=== PATIENT | female | born 1935 | race Caucasian/White ===

== ENCOUNTER 2018-10-03 07:14 | Inpatient (IN) ==
[2018-10-03] MEDS ORDERED: MORPHINE IV ONE ×2 (07:36→09:15)
[2018-10-03] MEDS ORDERED: NS 1,000 ML IV ONE (07:36)
[2018-10-03] MEDS ORDERED: ZOFRAN IV ONE (07:36)
--- NOTE | 2018-10-03 07:43 | PROVIDER DOCUMENTATION ---
HPI-Abdominal Pain/GI Problem - General Chief Complaint: Nausea/Vomiting Stated Complaint: ACID REFLUX Time Seen by Provider: 10/03/18 07:26 Source: patient, family (daughter) Allergies/Adverse Reactions: Patient Allergies Allergy/AdvReac Type Severity Reaction Status Date / Time benzonatate Allergy Severe ANAPHYLAXIS Verified 03/13/17 02:31 [From Tessalon Perles] hydromorphone [From Dilaudid] Allergy Intermediate SWELLING Verified 03/14/17 09:47 doxycycline Allergy SWELLING Verified 03/13/17 02:31 Home Medications: Home Medication List Medication Instructions Recorded Confirmed Last Taken Type PRAVAstatin [Pravachol] 40 mg PO QHS 09/20/13 01/16/18 01/17/16 19:00 History Levothyroxine [Synthroid] 75 microgm PO DAILY #10 09/25/13 01/16/18 01/18/16 07:00 Rx Amlodipine Besylate [Norvasc] 2.5 mg PO QAM 07/19/14 01/16/18 01/18/16 07:00 Hi story Pantoprazole Sodium [Protonix] 40 mg PO DAILY 03/14/17 01/16/18 Unknown History Donepezil [Aricept] 5 mg PO QHS #30 tab 03/20/17 01/16/18 Unknown Rx Ondansetron HCl [Zofran] 1 tab PO Q6H PRN 01/16/18 01/16/18 Unknown History Diphenhydramine [Benadryl] 25 mg PO Q6H PRN PRN capsule 01/18/18 Unknown Rx - History of Present Illness-ABD Nature of Presenting Problems: C/O upper abdominal pain, vomiting for 24 hours, gradually getting worse. Last BM/Flatus some time yesterday. History of SBO x 2 in the past, worried she has similar SBO at this time. Also has history of diverticulitis, and admit to eating raisins earlier in the week. No fever, chills. Also all grand kids and son-in-law have had strep this week, and patient does not some malaise, bodyaches and sore throat times 1-2 days Abdominal Pain Onset Location: reports: LUQ, epigastric Pain Radiation: reports: no radiation Quality of Pain: reports: aching, cramping, stabbing Severity in ED: reports: moderate Onset/Duration: reports: 24 hours ago Timing: reports: still present, constant, changing over time, getting worse Activities at Onset: reports: light activity Exposure to sick contacts?: Yes (Strep) Modifying Factors: improves with: nothing. worse with: movement Associated Symptoms: reports: malaise, muscle aches, nausea, swelling/mass in abdomen, vomiting. denies: fever/chills Last BM: 24 hours ago Dark Stools Present?: reports: none noticed Rectal Bleeding: reports: none Rectal Pain: reports: none Emesis Description: reports: clear (food particles, some bile) Bruising or Bleeding Gums?: No Similar Symptoms Previously?: Yes (SBO x 2) Recently seen or treated by another doctor?: No (Seekray Calderon. Has seen Mary for General Surgery) Review of Systems - Adult - REVIEW OF SYSTEMS - ADULT Constitutional: reports: no symptoms reported Eyes: reports: no symptoms reported Ears, Nose, Mouth & Throat: reports: see HPI, throat pain. denies: ear pain Cardiovascular: reports: no symptoms reported Respiratory: reports: no symptoms reported Gastrointestinal: reports: see HPI, abdominal pain, constipation, nausea, vomiti ng. denies: hematemesis, diarrhea, difficulty swallowing, frequent heartburn, poor appetite, rectal bleeding Genitourinary: reports: no symptoms reported Musculoskeletal: reports: no symptoms reported Integumentary: reports: no symptoms reported Neurological: reports: no symptoms reported Psychiatric: reports: no symptoms reported Endocrine: reports: no symptoms reported Hematologic/Lymphatic: reports: no symptoms reported Allergic/Immunologic: reports: no symptoms reported All Other Systems: Reviewed and Negative Past History - Adult - PAST MEDICAL HISTORY-ADULT Review of Records: reports: Old Records Reviewed, Nursing Assessment Review, Medications Reviewed, Social history reviewed & non-contributory. Major Childhood Illnesses: reports: denies history Cardiovascular: reports: HTN, hyperlipidemia Respiratory: reports: other (seasonal allergies) Gastrointestinal: reports: diverticulosis, GERD, obstruction, other (esophageal infection) Obstetrical/Gynecological: reports: denies history Genitourinary: reports: denies history Musculoskeletal: reports: denies history Neurological: reports: dementia Psychiatric: reports: anxiety Endocrine/Immune: reports: thyroid disorder Other Conditions: reports: denies history - PRIOR SURGERIES/PROCEDURES Surgical/Procedure History: reports: appendectomy, hysterectomy, tonsillectomy, other (exploratory laparotimy with colon resection, mastectomy) - PRIOR HOSPITALIZATIONS Prior Hospitalizations: reports: for other non-related - IMMUNIZATION STATUS Childhood Immunizations: UTD Flu Vaccine: UTD - FAMILY HISTORY Family History: reviewed, not pertinent - SOCIAL HISTORY Smoking: non-smoker Substance Use: none/never Alcohol Use Frequency: never Living Situation: family Physical Exam-General - PHYSICAL EXAM-ADULT Initial Vital Signs Reviewed: Yes (Tachycardic, tacypneic, afebrile) - CONSTITUTIONAL General Appearance: appears well, alert, no apparent distress - EYES Eyes: PERRL/EOMI, pink conjunctivae - HEAD, EARS, NOSE, MOUTH & THROAT HENMT: normocephalic/atraumatic, moist mucous membranes, normal ENT inspection, pharynx normal - NECK Neck: non-tender, full range of motion, supple, normal inspection - RESPIRATORY Respiratory: chest non-tender, lungs clear, normal breath sounds, no pleuratic chest pain, no respiratory distress, no accessory muscle use - CARDIOVASCULAR Cardiovascular: normal peripheral pulses, regular rate, rhythm, no edema, no gallop, no JVD, no murmur, tachycardia - GASTROINTESTINAL (ABDOMEN) Abdominal Exam: soft, no organomegaly, no pulsatile mass, abnormal bowel sounds (hyperactive), tenderness (generalized upper abdominal pain). negative: guarding - LYMPHATIC Lymphatic: no adenopathy - MUSCULOSKELETAL Back Exam: normal inspection, no CVA tenderness, no vertebral tenderness Extremity: normal range of motion, non-tender, normal gait, normal inspection, no pedal edema, no calf tenderness, normal capillary refill - SKIN Integumentary: normal color, normal turgor, warm/dry - NEUROLOGIC Neurologic: desk officer II-XII nml as tested, grossly normal, no motor/sensory deficits - PSYCHIATRIC Psych/Mental Status: normal mood/affect, normal thought content, normal thought process, oriented x 3 Progress - PLAN OF CARE/RESULTS Progress/Plan/Lab Results: Vital Signs - 8 hr 10/03/18 07:18 Temperature 97.3 F L Pulse Rate 101 H Respiratory Rate 20 Blood Pressure 143/74 O2 Sat by Pulse Oximetry 99 Orders Category Date Time Status Nursing- Obtain EKG once Care 10/03/18 07:34 Active Saline Loc NOW Care 10/03/18 07:33 Active NPO Diet 10/03/18 07:[address] ABDOMEN/PELVIS W/O CONTRAST [CT] Stat Exams 10/03/18 07:35 Ordered BLOOD CULTURE [BLDCUL] Stat Lab 10/03/18 07:35 Uncollected CBC WITH ELECTRONIC DIFF [HEME] Stat Lab 10/03/18 07:35 Uncollected CK PROFILE [SP CHEM] Stat Lab 10/03/18 07:35 Uncollected COMPREHENSIVE METABOLIC PANEL [CHEM] Stat Lab 10/03/18 07:35 Uncollected LACTATE, PLASMA [CHEM] Stat Lab 10/03/18 07:35 Uncollected LIPASE [CHEM] Stat Lab 10/03/18 07:35 Uncollected PRO B-NATRIURETIC PEPTIDE Stat Lab 10/03/18 07:35 Uncollected PROTIME WITH INR [COAG] Stat Lab 10/03/18 07:35 Uncollected TROPONIN T Stat Lab 10/03/18 07:35 Uncollected TYPE & SCREEN [BBK] Stat Lab 10/03/18 07:35 Uncollected URINALYSIS W/POSS RFLX CULT [URINALYSIS] Stat Lab 10/03/18 07:35 Uncollected 0.9% Sodium Chloride Inj [Ns] 1,000 ml Med 10/03/18 07:36 Active IV 999 mls/hr Morphine Med 10/03/18 07:36 Discontinued 2 mg IV NOW ONE Ondansetron [Zofran] Med 10/03/18 07:36 Discontinued 4 mg IV NOW ONE EKG [EKG] Stat Ther 10/03/18 07:34 Ordered Result Diagrams: 10/03/18 07:23 10/03/18 07:23 - REASSESSMENT Reassessment #1 Time Reassessed: 09:19 Status: improving (better after IV F and pain meds. No sign of Sepsis at this point. NGT ordered) - EKG 1 Time of EKG reading by physician:: 09:16 EKG Read and Signed by:: Edson Murphy EKG Interpretation (*Must complete 3 of following elements*): Abnormal Rate: 72 Rhythm: nsr [place]: normal QRS: poor R wave progression, other (LAE) SC Interval: normal ST Wave: normal Prior EKG Comparison: no prior EKG - CT/MRI 1 CT Study: Abdomen Impression: Abnormal (EXAM: CT ABDOMEN/PELVIS W/O CONTRAST 10/03/2018 HISTORY: abd pain, vomiting, history of SBO TECHNIQUE: This exam was performed using automated exposure control, adjustment of mA or kV according to patient size, and/or use of iterative reconstruction technique. COMMENT: The current examination is compared with the previous study of 01/16/2018. There is a somewhat triangular calcified nodule in the anterior right lower lobe. This has not changed significantly. There are platelike opacities in the left lower lobe which have not changed and are presumably due to fibrosis. There are granulomata in the spleen. There has been cholecystectomy. There are atherosclerotic arterial calcifications. There is no evidence of nephrolithiasis. There are peripelvic cysts in the left kidney. There is no evidence of hydronephrosis. The urinary bladder is unremarkable. There is diverticulosis in the sigmoid colon without evidence of diverticulitis. There are multiple distended fluid conta ining small bowel loops. There is retained fluid in the stomach which is not particularly distended. The distal small bowel is not distended. There is some fecalized contents in a small bowel loop which is demonstrated on image 106. This is presumably the level of the transition which is visible on image 102. There is some fecal debris in the colon. There is no evidence of free fluid or free air. The regional skeleton is stable in appearance. IMPRESSION: Partial small bowel obstruction. Electronically signed by Ad Meier 10/03/2018 9:03 AM 10/03/18 0903 Interpreting Physician: Ad Meier MD Dictated Date/Time: 10/03/18 0859 cc: Edson Murphy MD; Sarah Calderon), See EMR Report - CONSULTS/PCP/HOSPITALIST Notification #1 *Consult/PCP/Hospitalist*: Walker, surgery Time Discussed: :18 Consult Disposition: Admit (to hospitalist, will follow) #2 Consult: Martita Time Discussed: : Consult Disposition: Admit (to [facility]) Departure - Departure Date of Disposition Decision: 10/03/18 Time of Disposition Decision: DIAGNOSIS: Partial small bowel obstruction Disposition: ADMITTED INPATIENT 09 Certified Medical Emergency: Emergent Condition: Fair Referrals and Follow-Ups: Sarah Calderon MD [Primary Care Provider] - - Critical Care Note This patient required my direct & personal management of CC.: No Attestation - Physician/ IVANA Attestation Patient care was provided by Advanced Practice Provider:: No The physician spent face to face time with patient:: Yes Advanced Practice Provider documentation review:: Supervising physician onsite and consulted in the evaluation and care of this patient. The physician did have a face to face encounter with the patient.
[2018-10-03 08:09] LABS: BASO% 0.3 % (0.0-0.8); EOS% 0.1 % (0.0-10.0); HEMATOCRIT 37.5 % (37.0-47.0); HEMOGLOBIN 12.7 g/dL (12.0-16.0); LYMPH# 0.85 X1000 (1.2-3.4); LYMPH% 11.2 % (20.5-51.1); MCHC 33.9 g/dL (33-37); MCV 82.6 FL (81-99); MONO# 0.37 X1000 (0.11-0.59); MONO% 4.9 % (1.7-9.3); MPV 10.4 FL (7.4-10.4); NEUT# 6.37 X1000 (1.4-6.5); NEUT% 83.5 % (42.2-75.2); PLT 295 X1000 (130-400); RBC 4.54 XMIL (4.2-5.4); RDW 14.6 % (11.5-14.5); WBC 7.62 X1000 (4.8-10.8)
[2018-10-03 08:10] LABS: BASO# 0.02 X1000 (0.0-0.2); EOS# 0.01 X1000 (0.0-0.7)
[2018-10-03 08:19] LABS: INR 0.85; PROTIME 12.3 Seconds (11.0-16.0)
[2018-10-03 08:30] LABS: ALB/GLOB RATIO 1.5; ALBUMIN 4.9 g/dL (3.5-5.0); CALCIUM 10.3 mg/dL (8.8-10.2); CREATININE 0.9 mg/dL (0.5-0.9); POTASSIUM 3.7 mmol/L (3.5-5.1); TOTAL BILIRUBIN 0.32 mg/dL (0.20-1.00); TOTAL PROTEIN 8.1 g/dL (6.3-8.3)
--- NOTE | 2018-10-03 09:05 | Diag Imaging Result Doc PS360 ---
EXAM: CT ABDOMEN/PELVIS W/O CONTRAST 10/03/2018 HISTORY: abd pain, vomiting, history of SBO TECHNIQUE: This exam was performed using automated exposure control, adjustment of mA or kV according to patient size, and/or use of iterative reconstruction technique. COMMENT: The current examination is compared with the previous study of 01/16/2018. There is a somewhat triangular calcified nodule in the anterior right lower lobe. This has not changed significantly. There are platelike opacities in the left lower lobe which have not changed and are presumably due to fibrosis. There are granulomata in the spleen. There has been cholecystectomy. There are atherosclerotic arterial calcifications. There is no evidence of nephrolithiasis. There are peripelvic cysts in the left kidney. There is no evidence of hydronephrosis. The urinary bladder is unremarkable. There is diverticulosis in the sigmoid colon without evidence of diverticulitis. There are multiple distended fluid containing small bowel loops. There is retained fluid in the stomach which is not particularly distended. The distal small bowel is not distended. There is some fecalized contents in a small bowel loop which is demonstrated on image 106. This is presumably the level of the transition which is visible on image 102. There is some fecal debris in the colon. There is no evidence of free fluid or free air. The regional skeleton is stable in appearance. IMPRESSION: Partial small bowel obstruction. Electronically signed by Ad Meier 10/03/2018 9:03 AM
[2018-10-03] MEDS ORDERED: PEPCID IV ONE (09:15)
[2018-10-03] MEDS ORDERED: SODIUM CHLORIDE 0.9% INJ ONE (09:15)
[2018-10-03 10:05] LABS: URINE SOURCE CATH
[2018-10-03 10:08] LABS: BILIRUBIN URINE NEGATIVE (NEGATIVE); BLOOD URINE NEGATIVE (NEGATIVE); COLOR STRAW; GLUCOSE URINE NEGATIVE (NEGATIVE); KETONE URINE TRACE mg/dL (NEGATIVE); LEUKOCYTES URINE NEGATIVE (NEGATIVE); NITRITE URINE NEGATIVE (NEGATIVE); PH URINE 8.5; PROTEIN URINE NEGATIVE (NEGATIVE); SP GRAVITY URINE 1.004; TURBIDITY URINE CLEAR (CLEAR); UR EPITHELIAL CELLS <10 /HPF (<10); URINE BACTERIA NEGATIVE /HPF; URINE RBC <10 /HPF (<10); URINE WBC <10 /HPF (<10); UROBILINOGEN URINE NORMAL (NORMAL)
--- NOTE | 2018-10-03 10:29 | EKG Report ---
Test Performed on : 10/03/2018 09:12:07 AM Test Reason : vomiting Blood Pressure : / mmHG Vent. Rate : 072 BPM Atrial Rate : 072 BPM P-R Int : 162 ms QRS Dur : 084 ms QT Int : 424 ms P-R-T Axes : 057 -10 041 degrees QTc Int : 464 ms Normal sinus rhythm. Possible Left atrial enlargement Borderline ECG When compared with ECG of 16-JAN-2018 12:16, No significant change was found Unconfirmed Result
--- NOTE | 2018-10-03 10:49 | Diag Imaging Result Doc PS360 ---
EXAM: CHEST-1 VIEW INDICATION: NG TUBE PLACEMENT TECHNIQUE: One view COMPARISON: 01/16/2018 FINDINGS: There is evidence of prior granulomatous disease, stable. There is a newly placed NG tube. The tip projects a few centimeters below the diaphragm and is assumed to be in the lumen of the stomach. There is stable mild elevation of the right hemidiaphragm. The lungs are grossly clear. There is no discrete pleural fluid collection or pneumothorax. The cardiomediastinal silhouette and central vasculature are grossly unremarkable. IMPRESSION: NG tube tip projecting below the diaphragm in the expected position as described. Electronically signed by Aldo Craft 10/03/2018 10:47 AM
[2018-10-03] MEDS ORDERED: ZOFRAN IV PRN (10:56)
--- NOTE | 2018-10-03 11:11 | HISTORY AND PHYSICAL ---
PRIMARY CARE PROVIDER: Dr. Sarah Calderon. ARCHERY INSTRUCTOR: Was Dr. Viera. She believes it is Dr. White now. CHIEF COMPLAINT: Abdominal pain. HISTORY OF PRESENT ILLNESS: Ms. Gomez is an 83-year-old, female with a past medical history of Sjogren's syndrome, peptic ulcer disease, hypertension, anxiety, hypothyroidism, hyperlipidemia, small bowel obstructions, gastroparesis, GERD, cricopharyngeal achalasia, and esophageal spasm, who came to the ED complaining of abdominal pain. She states her last bowel movement was yesterday. It was formed and diarrhea. She complained of some constipation. Her last meal was late yesterday. She states this a.m., she was sitting at the table, had an acute onset of nausea and vomiting, and threw up, and vomited up yesterday's meal. She also complained of a scratchy throat. She was ruled out for strep throat. Dr. Murphy has spoken with Dr. Dinh. He will follow along with the patient. They did place an NG tube that we will connect to intermittent suctioning and start her on IV fluids. She appears clinically dry. Continue her n.p.o. status and await Dr. Dinh's recommendations. PAST MEDICAL HISTORY: Sjogren's syndrome, peptic ulcer disease, gastroparesis, hiatal hernia, GERD, history of small-bowel obstructions, laryngeal spasm, esophageal spasm, cricopharyngeal achalasia, history of eyad esophagitis, dementia, hypertension, anxiety, hypothyroidism, hyperlipidemia, osteoarthritis, and anemia. PAST SURGICAL HISTORY: Appendectomy, cholecystectomy, bilateral mastectomy with breast augmentation implants due to multiple cysts but never diagnosed with cancer, hysterectomy, radical neck surgery, small bowel resection for a past small-bowel obstruction, exploratory laparotomy, lysis of adhesions, and a small-bowel resection by Dr. Hernandez in 2017. ALLERGIES: Tessalon Perles, anaphylaxis; Dilaudid, swelling; doxycycline, swelling; IV dye contrast, anaphylaxis. MEDICATIONS: Home medications have not been verified. REVIEW OF SYSTEMS: A 12-point review of systems was completely negative except for those mentioned in the HPI. She denied headache, fever, chills, chest pain, shortness of breath. No dysuria. No frequency. No bright red or dark tarry stools. PHYSICAL EXAMINATION: VITAL SIGNS: Temperature is 97.3 degrees, heart rate 101, respirations 19, blood pressure 157/74, O2 is 100% on room air. GENERAL: Ms. Gomez is an 83-year-old, female who was having an NG tube inserted, lying on the stretcher but in no acute distress. HEENT: Atraumatic, normocephalic. PERRL. She now has an NG tube into her naris. Mucous membranes are extremely dry. CARDIOVASCULAR: S1, S2 appreciated. No murmurs, gallops, or rubs noted. RESPIRATORY: Lung sounds clear. Equal chest excursion. Nonlabored breathing. GI: Soft. Mild tenderness to palpation. Positive bowel sounds in 4 quadrants. EXTREMITIES: Negative for edema. NEUROLOGIC: No focal deficits noted. DIAGNOSTIC DATA: Abdomen and pelvis CT showed a partial small bowel obstruction. LABORATORY DATA: White count 7, hemoglobin and hematocrit 12 and 37, platelet count 295,000. Sodium 137, potassium 3.7, BUN 14, creatinine 0.9, blood glucose is 146. Urinalysis was negative for bacteria, negative for nitrites. ASSESSMENT AND PLAN: 1. Partial small bowel obstruction. Patient will be admitted to the surgical telemetry floor. We will make her nothing per oral. Emergency department has inserted a nasogastric tube. We will place that to intermittent low wall suction. We will consult Dr. Dinh. We will continue with intravenous fluids and pain management. 2. Clinical dehydration. We will continue with intravenous fluids. 3. Dementia, on Aricept. 4. Hypertension. 5. Anxiety. 6. Hypothyroidism. 7. Hyperlipidemia. 8. Osteoarthritis. 9. Anemia. 10. Sjogren's syndrome, aware. 11. Peptic ulcer disease. 12. Gastroparesis. 13. Hiatal hernia. 14. Gastroesophageal reflux disease. 15. Laryngeal and esophageal spasms, cricopharyngeal achalasia. 16. Further recommendations to follow physician evaluation, laboratory and diagnostic data. Dictated by STONEY Klein for Carla Us MD cc: MD Mahesh Kulkarni MD
[2018-10-03] MEDS: NS 1,000 ML IV SCH ×2 (12:17→19:51)
[2018-10-03] MEDS ORDERED: SODIUM CHLORIDE 0.9% INJ PRN (15:52)
[2018-10-03] MEDS: DEMEROL IV PRN ×2 (16:54→20:37)
--- NOTE | 2018-10-03 19:50 | GENERAL SURGERY CONSULTATION ---
DATE: 10/03/2018 HISTORY OF PRESENT ILLNESS: This is a pleasant, 83-year-old white female who, over the past couple of days, has noticed a decrease in her bowel activity. Has had some crampy abdominal pain and this morning presented because of that to the emergency department. Her CT suggests some dilated loops of small bowel with some decompressed further distal loops, consistent with at least a partial small bowel obstruction. PAST HISTORY: Pertinent for: 1. Sjogren syndrome. 2. Peptic ulcer disease. 3. Gastroparesis. 4. Hiatal hernia. 5. Esophageal spasm. 6. Cricopharyngeal achalasia. 7. Hypertension. 8. Anxiety. 9. Hypothyroidism. 10. Hyperlipidemia. 11. Osteoarthritis. PAST SURGICAL HISTORY: 1. She has had a history of 2 laparotomies for bowel obstruction. 2. Appendectomy. 3. Cholecystectomy. 4. Bilateral mastectomy with augmentation. 5. Hysterectomy. 6. Neck surgery. USUAL MEDICATIONS AT HOME: Include: 1. Pravastatin 40 mg at bedtime. 2. Synthroid 75 mcg daily. 3. Norvasc 2.5 mg daily. 4. Desyrel 50 mg at bedtime. 5. Namenda 5 mg b.i.d. ALLERGIES: She has an intolerance to hydromorphone, doxycycline, and benzonatate. REVIEW OF SYSTEMS: Negative except for the GI symptoms noted above. PHYSICAL EXAMINATION: Vital Signs: She is afebrile. Heart rate 84. Blood pressure 169/75. General: She is comfortable. Her NG tube is in place. About 600 mL of fluid are in her NG tube. Neck: No cervical adenopathy. Lungs: Bilateral breath sounds. Heart: Regular rate and rhythm. Abdomen: Soft. Bowel sounds are present. She is nontender. There is no localized tenderness. Extremities: No peripheral edema. Neurologic: She is awake and alert. LABS: White count 7600, hemoglobin 12.7. Chemistry shows a chloride of 94, sodium 137, BUN 14, creatinine 0.9. Her calcium is elevated at 10.3. ASSESSMENT: Partial small-bowel obstruction. RECOMMENDATION: Nasogastric suction and hydration, serial abdominal exams, and will repeat her flat and upright tomorrow. cc: Mahesh Dinh MD
[2018-10-04] MEDS: DEMEROL IV PRN ×2 (00:14→17:22)
[2018-10-04] MEDS: NS 1,000 ML IV SCH ×3 (06:46→18:13)
[2018-10-04] MEDS: SYNTHROID IV SCH (06:47)
[2018-10-04] MEDS: PROTONIX IV SCH (06:47)
[2018-10-04 07:31] LABS: BASO# 0.01 X1000 (0.0-0.2); BASO% 0.1 % (0.0-0.8); EOS# 0.02 X1000 (0.0-0.7); EOS% 0.2 % (0.0-10.0); HEMATOCRIT 35.5 % (37.0-47.0); HEMOGLOBIN 11.8 g/dL (12.0-16.0); IMM GRAN# 0.02 X1000 (0.0-0.04); IMM GRAN% 0.2 % (0.0-0.5); LYMPH# 1.65 X1000 (1.2-3.4); LYMPH% 18.2 % (20.5-51.1); MCHC 33.2 g/dL (33-37); MCV 84.3 FL (81-99); MONO# 0.66 X1000 (0.11-0.59); MONO% 7.3 % (1.7-9.3); MPV 10.3 FL (7.4-10.4); NEUT# 6.73 X1000 (1.4-6.5); PLT 287 X1000 (130-400); RBC 4.21 XMIL (4.2-5.4); RDW 14.9 % (11.5-14.5); WBC 9.09 X1000 (4.8-10.8)
[2018-10-04 07:47] LABS: AGAP 12; ALB/GLOB RATIO 1.2; ALBUMIN 4.1 g/dL (3.5-5.0); ALKALINE PHOSPHATASE 99 U/L (32-104); BUN 8 mg/dL (8-22); CALCIUM 8.9 mg/dL (8.8-10.2); CHLORIDE 100 mmol/L (98-107); COSMO 267; CREATININE 0.5 mg/dL (0.5-0.9); ESTIMATED GFR > 60; GLUCOSE 99 mg/dL (70-104); GOT 26 U/L (10-30); GPT 10 U/L (10-36); POTASSIUM 3.3 mmol/L (3.5-5.1); SODIUM 134 mmol/L (136-145); TCO2 22 mmol/L (25-35); TOTAL PROTEIN 7.4 g/dL (6.3-8.3)
[2018-10-04] MEDS ORDERED: POTASSIUM PHOSPHATE 40 MMOL in NS 250 ML IV ONE (08:44)
--- NOTE | 2018-10-04 10:10 | Diag Imaging Result Doc PS360 ---
EXAM: KUB ABDOMEN 10/04/2018 HISTORY: Partial SBO TECHNIQUE: KUB COMMENT: There is some gas and stool in the colon without dilatation. There is no evidence of small bowel or gastric distention. There is no evidence organomegaly or mass. Compared to 01/23/2018 there is somewhat less stool in the colon. IMPRESSION: Nonspecific abdomen. Electronically signed by Ad Meier 10/04/2018 10:08 AM
--- NOTE | 2018-10-04 12:38 | PROGRESS NOTE ---
DATE: 10/04/2018 SUBJECTIVE: The patient is sitting on the bedside commode. She states that she feels a little bit better today. She denies having any nausea or episodes of emesis and states that her abdomen does not hurt at this time. OBJECTIVE: Vital Signs: Temperature 98.7 degrees, blood pressure 141/61, heart rate 78, respirations 19, O2 saturation 97% on room air. General: This is a chronically ill-appearing elderly female sitting in no acute distress. Heart: S1, S2 normal. Regular rate and rhythm. Lungs: Clear to auscultation bilaterally. Abdomen: Positive bowel sounds. Soft, nontender, nondistended. Extremities: No edema, no cyanosis. Neurologic: The patient is alert and oriented x3. LABORATORY DATA: Sodium 134, potassium 3.3, chloride 100, CO2 22, BUN 8, creatinine 0.5, glucose 99, phosphorus 1.4, magnesium 2. Abdominal x-ray shows a nonspecific abdomen. ASSESSMENT AND PLAN: 1. Partial small bowel obstruction, improved. Continue with IV fluids. Will await further recommendations from the general surgeon. 2. Hypothyroidism. Continue on Synthroid. 3. Dementia. Aware. 4. Gastrointestinal prophylaxis. Continue on IV Protonix. 5. Deep vein thrombosis prophylaxis. Will start the patient on Lovenox. cc: Carla Us MD
--- NOTE | 2018-10-04 15:13 | GENERAL SURGERY PROGRESS NOTE ---
DATE: 10/04/2018 SUBJECTIVE: Ms. Gomez's x-ray is improved. She is having quite a lot of misery with her NG tube. X-ray shows air in her colon. She remains afebrile with stable hemodynamics. The plan is to remove her NG tube but keep her n.p.o. We will repeat her x-ray tomorrow. Dr. Hernandez is to cover the weekend. cc: Mahesh Dinh MD
[2018-10-04] MEDS: LOVENOX SUBQ SCH (17:23)
[2018-10-05] MEDS: PROTONIX IV SCH ×2 (05:47→06:38)
[2018-10-05] MEDS: SODIUM CHLORIDE 0.9% INJ SCH (05:47)
[2018-10-05] MEDS: SYNTHROID IV SCH ×2 (05:47→06:38)
[2018-10-05 07:35] LABS: AGAP 18; ALBUMIN 3.8 g/dL (3.5-5.0); BUN 12 mg/dL (8-22); CALCIUM 7.9 mg/dL (8.8-10.2); CHLORIDE 100 mmol/L (98-107); COSMO 267; CREATININE 0.5 mg/dL (0.5-0.9); ESTIMATED GFR > 60; GLUCOSE 54 mg/dL (70-104); MAGNESIUM 2.1 mg/dL (1.5-2.7); PHOSPHORUS 2.6 mg/dL (2.7-4.5); POTASSIUM 3.1 mmol/L (3.5-5.1); SODIUM 135 mmol/L (136-145); TCO2 17 mmol/L (25-35)
[2018-10-05] MEDS ORDERED: POTASSIUM PHOSPHATE 50 MMOL in NS 250 ML IV ONE (07:38)
--- NOTE | 2018-10-05 08:12 | Diag Imaging Result Doc PS360 ---
EXAM: FLAT/UPRIGHT ABD/1 VIEW CHEST 10/05/2018 HISTORY: SBO TECHNIQUE: Flat and upright abdomen with PA chest COMMENT: There is some gas and stool in the colon. The stomach and small bowel are not distended. There has been cholecystectomy. There is no evidence organomegaly or mass. There is some apparent minimal platelike atelectasis in the lingula which was not apparent on 10/03/2018. There are granulomata. Otherwise, the appearance of the chest has not changed significantly. IMPRESSION: Nonspecific abdomen. No evidence of bowel obstruction. Minimal lingular atelectasis. Electronically signed by Ad Meier 10/05/2018 8:09 AM
--- NOTE | 2018-10-05 11:09 | PROGRESS NOTE ---
DATE: 10/05/2018 SUBJECTIVE: Ms. Aj Gomez is an 83-year-old white female whose NG tube was removed yesterday. Her abdomen seems to be soft. She denies flatus or bowel movement, but she has bowel sounds. Flat and upright abdominal film today shows a nonspecific gas pattern with gas in her colon, and we feel that we can advance her diet. I will put her on a full liquid diet and advance her diet as tolerated. cc: Aledia Hernandez MD
[2018-10-05] MEDS ORDERED: KLOR-CON PO ONE (12:03)
[2018-10-05] MEDS: LOVENOX SUBQ SCH (12:32)
--- NOTE | 2018-10-05 17:35 | PROGRESS NOTE ---
DATE: 10/05/2018 SUBJECTIVE: The patient is resting comfortably in bed. She denies having any nausea, vomiting, or abdominal pain. She states that she has not had a bowel movement yet. OBJECTIVE: Vital Signs: Temperature 98.6 degrees, blood pressure 129/62, heart rate 69, respirations 18, O2 saturation 99% on room air. General: This is an elderly female lying in bed in no acute distress. Heart: S1, S2 normal. Regular rate and rhythm. Lungs: Clear to auscultation bilaterally. No wheezing. No rales. No rhonchi. Abdomen: Positive bowel sounds. Soft, nontender, nondistended. Extremities: No edema, no cyanosis. Neurologic: The patient is alert and oriented x3. LABS: Sodium is 135, potassium 3.1, chloride 100. CO2 is 17, BUN 12, creatinine 0.5, glucose 54, phosphorus 2.6, magnesium 2.1. ASSESSMENT AND PLAN: 1. Partial small bowel obstruction. Slowly resolving. Management as per general surgeon. 2. Hypothyroidism. Will restart the patient's oral Synthroid. 3. Dementia. Will restart Namenda. 4. Gastrointestinal prophylaxis. Continue on Protonix. 5. Deep vein thrombosis prophylaxis. Continue on Lovenox. 6. Will consult physical therapy. 7. Hypokalemia. Will replace the patient's potassium. 8. Hypophosphatemia. Will replace the patient's phosphorus. cc: Carla Us MD
[2018-10-05] MEDS: NS 1,000 ML IV SCH (18:30)
[2018-10-05] MEDS ORDERED: PRAVACHOL PO SCH (21:00)
[2018-10-05] MEDS ORDERED: DESYREL PO SCH (21:00)
[2018-10-05] MEDS: NAMENDA PO SCH (21:19)
[2018-10-05] MEDS: NEUTRA-PHOS PO SCH (21:19)
[2018-10-06] MEDS: SODIUM CHLORIDE 0.9% INJ SCH (06:25)
[2018-10-06] MEDS: PROTONIX IV SCH (06:25)
[2018-10-06] MEDS: NS 1,000 ML IV SCH (06:25)
[2018-10-06 07:12] LABS: AGAP 6; ALBUMIN 3.6 g/dL (3.5-5.0); BUN 7 mg/dL (8-22); CALCIUM 8.4 mg/dL (8.8-10.2); CHLORIDE 107 mmol/L (98-107); COSMO 277; CREATININE 0.6 mg/dL (0.5-0.9); ESTIMATED GFR > 60; GLUCOSE 90 mg/dL (70-104); PHOSPHORUS 1.8 mg/dL (2.7-4.5); POTASSIUM 3.8 mmol/L (3.5-5.1); SODIUM 140 mmol/L (136-145); TCO2 27 mmol/L (25-35)
[2018-10-06 07:46] VITALS: BP 168/77
[2018-10-06] MEDS: NAMENDA PO SCH (08:26)
[2018-10-06] MEDS: NEUTRA-PHOS PO SCH (08:26)
[2018-10-06] MEDS ORDERED: SYNTHROID PO SCH (09:00)
[2018-10-06] MEDS ORDERED: NORVASC PO SCH (09:00)
--- NOTE | 2018-10-06 09:06 | PROGRESS NOTE ---
DATE: 10/06/2018 SUBJECTIVE: Ms. Gomez is an 83-year-old white female who was admitted with a partial small bowel obstruction. Her abdomen is now soft. She has had bowel activity. She is tolerating liquids and feels back to normal. She has been good about moving around the nurse's grady. She wants to get home for her grandchildren's birthday alliance party, and from a surgical standpoint, I thank her partial small bowel obstruction has resolved. At discharge, I want her back on all her regular home medications. She can shower like normal and follow up with us on an as-needed basis. cc: Aleida Hernandez MD
[2018-10-06] MEDS ORDERED: SODIUM PHOSPHATE 40 MMOL in NS 250 ML IV ONE (09:40)
== END 2018-10-06 11:00 | disposition home or self-care (01) | DRG 389 ==
LOC: ED 07:14 → 4N 10:08
PROVIDERS: ATTEND Internal Medicine
CPT/HCPCS: 51701; 71010; 71045; 74000; 74018; 74022; 74176; 80053; 80069; 81001; 82550; 83605; 83690; 83735; 83880; 84100; 84484; 85025; 85610; 86850; 86900; 86901; 87040; 87081; 87430; 93005; 96361; 96374; 96375; 96376; 99285; A9270; C9113; J1650; J2175; J2270; J2405; J7030; J7050; P9612; S0028; S0164

== ENCOUNTER 2019-06-28 12:07 | Inpatient (IN) ==
--- NOTE | 2019-06-28 12:51 | Diag Imaging Result Doc PS360 ---
EXAM: XRAY PELVIS W/HIP 2-3VW RT HISTORY: fall TECHNIQUE: Three views COMPARISON: None. FINDINGS: Comminuted fractures to the right superior and inferior pubic rami. Fractures extend into the pubic symphysis. Mild displacement. These are frequently associated with nondisplaced sacral fractures. There is no sacral fracture identified. The femoral head remains in the acetabulum. IMPRESSION: Right pubic rami fractures. Electronically signed by Christian Lynn 06/28/2019 12:49 PM
[2019-06-28] MEDS ORDERED: ZOFRAN IV ONE (14:05)
[2019-06-28] MEDS ORDERED: MORPHINE IV ONE (14:05)
[2019-06-28] MEDS ORDERED: NS 1,000 ML IV ONE (14:11)
[2019-06-28 15:02] LABS: BASO# 0.04 X1000 (0.0-0.2); BASO% 0.2 % (0.0-0.8); EOS# 0.02 X1000 (0.0-0.7); EOS% 0.1 % (0.0-10.0); HEMOGLOBIN 11.3 g/dL (12.0-16.0); IMM GRAN# 0.08 X1000 (0.0-0.04); IMM GRAN% 0.5 % (0.0-0.5); INR 0.95; LYMPH# 1.08 X1000 (1.2-3.4); LYMPH% 6.7 % (20.5-51.1); MCH 28.3 PG (27-31); MCHC 33.2 g/dL (33-37); MCV 85.2 FL (81-99); MONO# 0.85 X1000 (0.11-0.59); MONO% 5.3 % (1.7-9.3); MPV 10.3 FL (7.4-10.4); NEUT# 14.04 X1000 (1.4-6.5); NEUT% 87.2 % (42.2-75.2); PLT 290 X1000 (130-400); PROTIME 12.8 Seconds (11.0-16.0); PTT 26.1 Seconds (22.3-41.8); RBC 3.99 XMIL (4.2-5.4); RDW 13.9 % (11.5-14.5); WBC 16.11 X1000 (4.8-10.8)
[2019-06-28 15:09] LABS: AGAP 13; ALBUMIN 3.9 g/dL (3.5-5.0); ALKALINE PHOSPHATASE 99 U/L (32-104); BUN 19 mg/dL (8-22); CALCIUM 8.9 mg/dL (8.8-10.2); CHLORIDE 99 mmol/L (98-107); COSMO 271; CREATININE 0.6 mg/dL (0.5-0.9); ESTIMATED GFR > 60; GLUCOSE 111 mg/dL (70-104); GOT 28 U/L (10-30); GPT 12 U/L (10-36); POTASSIUM 4.5 mmol/L (3.5-5.1); SODIUM 134 mmol/L (136-145); TCO2 22 mmol/L (25-35); TOTAL BILIRUBIN 0.29 mg/dL (0.20-1.00); TOTAL PROTEIN 7.7 g/dL (6.3-8.3)
[2019-06-28 15:24] LABS: URINE SOURCE CATH
[2019-06-28 15:30] LABS: BILIRUBIN URINE NEGATIVE (NEGATIVE); BLOOD URINE NEGATIVE (NEGATIVE); COLOR YELLOW; GLUCOSE URINE NEGATIVE (NEGATIVE); KETONE URINE NEGATIVE (NEGATIVE); LEUKOCYTES URINE NEGATIVE (NEGATIVE); NITRITE URINE NEGATIVE (NEGATIVE); PROTEIN URINE NEGATIVE (NEGATIVE); SP GRAVITY URINE 1.012; TURBIDITY URINE CLEAR (CLEAR); UROBILINOGEN URINE NORMAL (NORMAL)
[2019-06-28 15:31] LABS: UR EPITHELIAL CELLS <10 /HPF (<10); URINE BACTERIA NEGATIVE /HPF; URINE RBC <10 /HPF (<10); URINE WBC <10 /HPF (<10)
[2019-06-28] MEDS ORDERED: ZOFRAN IV PRN (15:32)
[2019-06-28] MEDS ORDERED: NS 1,000 ML IV SCH (15:32)
--- NOTE | 2019-06-28 15:44 | Diag Imaging Result Doc PS360 ---
EXAM: CHEST-PORTABLE HISTORY: r/o pna TECHNIQUE: Single view COMPARISON: 10/05/2018 FINDINGS: The lungs are well expanded. The heart is not enlarged. The vessels are not distended. There are no infiltrates. No effusion identified. There is a granuloma in the right costophrenic angle. Bilateral breast implants. IMPRESSION: No pneumonia Electronically signed by Christian Lynn 06/28/2019 3:42 PM
--- NOTE | 2019-06-28 16:08 | HISTORY AND PHYSICAL ---
PRIMARY CARE PROVIDER: Sarah Calderon MD. CHIEF COMPLAINT: Slip and landed on hip. HISTORY OF PRESENT ILLNESS: Ms. Zahira Gomez is an 84-year-old female, who lives by herself. She has a medical history of a Sjgren's syndrome, peptic ulcer disease, anxiety, hypothyroidism, small bowel obstructions, who is here after she slipped in her kitchen while she was standing at the counter. She thinks there may have been some water on the floor. She landed on her right hip, which caused severe pain. She now has imaging that reveals she has right superior and inferior pubic rami fractures without a sacral fracture. So we will admit her for further treatment and evaluation. PAST MEDICAL HISTORY: 1. Sjgren's syndrome. 2. Peptic ulcer disease. 3. Gastroparesis. 4. Hiatal hernia. 5. GERD. 6. History of small bowel obstructions. 7. Laryngeal spasms. 8. Esophageal spasms. 9. Cricopharyngeal achalasia. 10. History of Jacki esophagitis. 11. Dementia. 12. Hypertension. 13. Anxiety. 14. Hypothyroidism. 15. Hyperlipidemia. 16. Osteoarthritis. 17. Anemia. SURGICAL HISTORY: 1. Appendectomy. 2. Cholecystectomy. 3. Bilateral mastectomy with breast augmentation and implants secondary to multiple cysts but no cancer. 4. Hysterectomy. 5. Radical neck surgery. 6. Small bowel resection for a small bowel obstruction. 7. Exploratory laparotomy. 8. Lysis of adhesions. 9. Small bowel resection by Dr. Hernandez in 2017. SOCIAL HISTORY: Denies tobacco, alcohol, or illicit drug use. Lives at home alone. Does not use any assistive devices for ambulation. FAMILY HISTORY: Mother had heart disease. Father from a wreck. ALLERGIES: Tessalon Perles, Dilaudid, doxycycline, IV dye. HOME MEDICATIONS: Have not been reconciled yet. REVIEW OF SYSTEMS: Fourteen point review of systems are complete and all were negative except for those mentioned above in HPI. PHYSICAL EXAMINATION: VITAL SIGNS: Temperature 98.0 degrees, heart rate 77, respiratory rate 18, blood pressure 120/56, O2 saturation 99% on room air, 5 feet 4 inches tall, 120 pounds with a BMI of 20.6. GENERAL: Ms. Aj Gomez is an 84-year-old female. She is in no acute distress. She is able answer questions appropriately. HEENT: Atraumatic, normocephalic. Pupils equal, round, reactive to light. Extraocular movements intact. Mucous membranes are dry. NECK: Trachea midline. CARDIOVASCULAR: S1, S2. Regular rate and rhythm. No rubs, gallops, or murmurs. No lower extremity edema. Plus 2 dorsalis and radial pulses. Negative JVD or carotid bruits. PULMONARY: Clear to auscultate bilateral breath sounds. No accessory muscle use or work of breathing noted. GI: Soft, nontender, nondistended. Positive bowel sounds x4. EXTREMITIES: Moves all extremities equally. Full range of motion except for lower extremities due to the pain that she is having in the right pelvic region, definitely decreased range of motion. NEUROLOGIC: A and O x3. Follows commands. Sensory is intact. SKIN: Warm, dry, intact. LABORATORY DATA: White blood cells 16,000, hemoglobin 11, hematocrit 34, platelet count 290,000. INR is 0.95, PTT is 26.1. Sodium 134, potassium 4.5, BUN 19, creatinine 0.6, glucose 111 calcium 8.9, bilirubin 0.29, AST 28, ALT 12, albumin 3.9. IMAGING: X-ray of the right hip and pelvis showed comminuted fracture to the right superior and inferior pubic rami, fractures extend into the pubic symphysis, and there is mild displacement. There is no sacral fracture. ASSESSMENT AND PLAN: 1. Right pelvic fracture, which includes the right superior and inferior pubic rami. We will treat her pain. Consult Orthopedic Surgery for any recommendations. Order Physical Therapy. Place a Ayala catheter for now. 2. History of anemia, that is currently stable. 3. Leukocytosis. She is afebrile. Lactate has been ordered, urinalysis ordered, blood cultures have been ordered, chest x-ray ordered. She denies any symptoms that are associated with infections. 4. Dementia. Once those medications are reconciled, will get those resumed. 5. Hyperlipidemia. Will continue her statin once it is reconciled. 6. Hypertension. It looks like she takes Norvasc. Will resume that as well once it is verified. 7. Hypothyroidism. Will continue Synthroid once it is verified. 8. Chronic constipation. We will continue the MiraLAX and Colace if she is still on it. 9. Deep venous thrombosis prophylaxis sequential compression devices. Dictated by STONEY Pereira for Carla Us MD cc: STONEY Pereira MD
[2019-06-28] MEDS: MORPHINE IV PRN ×2 (18:39→22:29)
--- NOTE | 2019-06-28 21:25 | CONSULTATION ---
DATE OF CONSULTATION: 06/28/2019 CHIEF COMPLAINT: Pubic rami fractures after a fall. HISTORY: Patient is a 84 year old white female, who was at home today who says that she had a "silly accident" where she fell from a standing height to the ground injuring her pelvis and hip area. She complained of right hip pain and was evaluated in the ER where she was found to have superior and inferior pubic rami fractures. The patient was admitted because of her inability to ambulate safely. PAST MEDICAL HISTORY: Sjogren syndrome, peptic ulcer disease, gastroparesis, hiatal hernia, reflux disease, history of small-bowel obstruction, laryngeal spasm as well as esophageal spasm, dementia, hypertension, anxiety, hypothyroidism, hyperlipidemia, anemia. FAMILY HISTORY: She does report hypertension, coronary disease. ALLERGIES: Tessalon Perles, Dilaudid, doxycycline and IV dye. SOCIAL HISTORY: She lives alone. She denies recent cold, cough, fevers chills, chest pain, shortness of breath or other acute illness. EXAM: Pleasant female who is in no distress my exam. I examined her in the hospital bed in her room.HEENT: Conjunctivae pink. Mucous membranes are moist. Neck: Supple without JVD. Heart: Regular with a controlled rate. Respiration nonlabored. Abdomen: Soft and nontender. Extremities: Reveal pain along the right hip area. There is some pain with rotation of the hip but it is not severe. She has more pain with movement of her pelvis in the bed. Rolling from side to side creates pain. No significant soft tissue swelling. Ecchymosis noted in the right leg. She is able move ankles up and down on command. Neurologic: She is alert, answers questions to me. ASSESSMENT/PLAN: Right superior and inferior pubic rami fractures. I explained the patient she can weight bear with a walker. Will make her 50% weightbearing with a walker, ask physical therapy to consult her and she will likely need to consider rehabilitation placement given her social situation. I explained to her this will take approximately 6 weeks for her to get to state near her normal activity level. Her weightbearing status can be readdressed based on x-rays along the course of her healing. I would recommend her to be reevaluated in approximately 4 weeks with x-rays. DVT prophylaxis per the medical team. cc: Shailesh Chavez,
[2019-06-28] MEDS: TYLENOL PO PRN (22:30)
[2019-06-29] MEDS: SYNTHROID PO SCH ×2 (06:33→08:59)
[2019-06-29 07:02] LABS: BASO# 0.02 X1000 (0.0-0.2); BASO% 0.4 % (0.0-0.8); EOS# 0.04 X1000 (0.0-0.7); EOS% 0.8 % (0.0-10.0); HEMATOCRIT 30.1 % (37.0-47.0); HEMOGLOBIN 9.6 g/dL (12.0-16.0); LYMPH# 1.61 X1000 (1.2-3.4); LYMPH% 33.4 % (20.5-51.1); MCH 27.7 PG (27-31); MCHC 31.9 g/dL (33-37); MCV 86.7 FL (81-99); MONO# 0.32 X1000 (0.11-0.59); MONO% 6.6 % (1.7-9.3); MPV 10.2 FL (7.4-10.4); NEUT# 2.83 X1000 (1.4-6.5); NEUT% 58.8 % (42.2-75.2); PLT 236 X1000 (130-400); RBC 3.47 XMIL (4.2-5.4); WBC 4.82 X1000 (4.8-10.8)
[2019-06-29 07:31] LABS: AGAP 9; ALB/GLOB RATIO 1.4; ALBUMIN 3.6 g/dL (3.5-5.0); ALKALINE PHOSPHATASE 80 U/L (32-104); BUN 16 mg/dL (8-22); CALCIUM 8.2 mg/dL (8.8-10.2); CHLORIDE 103 mmol/L (98-107); COSMO 273; CREATININE 0.6 mg/dL (0.5-0.9); ESTIMATED GFR > 60; GLUCOSE 92 mg/dL (70-104); GOT 20 U/L (10-30); GPT 10 U/L (10-36); SODIUM 136 mmol/L (136-145); TCO2 24 mmol/L (25-35); TOTAL BILIRUBIN 0.46 mg/dL (0.20-1.00); TOTAL PROTEIN 6.2 g/dL (6.3-8.3)
[2019-06-29] MEDS: MORPHINE IV PRN ×3 (08:59→20:52)
--- NOTE | 2019-06-29 20:13 | PROGRESS NOTE ---
DATE: 06/29/2019 SUBJECTIVE: The patient is resting comfortably in bed. She has no complaints at this time. She states that her hips hurt whenever she tries to move. OBJECTIVE: Vital Signs: Temperature 98.4 degrees, blood pressure 107/51, heart rate 86, respirations 16, O2 saturation 96% on room air. General: This is an elderly female lying in bed in no acute distress. Heart: S1, S2 normal. Regular rate and rhythm. Lungs: Equal air entry bilaterally. No wheezing, no rales, no rhonchi. Abdomen: Positive bowel sounds. Soft, nontender, nondistended. Extremities: No edema, no cyanosis. Neuro: The patient is alert and oriented x3. LABS: Hemoglobin 9.6, hematocrit 30, platelets 236,000, calcium 8.2, glucose 92. ASSESSMENT AND PLAN: 1. Right pubic rami fractures. The patient was assessed by the orthopedic surgeon who recommends conservative management with physical therapy. Will consult with [facility] Control Inspector for inpatient rehab placement. 2. Hypothyroidism. Continue on Synthroid. 3. Hypertension. Stable. 4. Deep vein thrombosis prophylaxis. We will start the patient on Lovenox. 5. Disposition. Once a rehab bed has been found the patient can be discharged to inpatient rehab. cc: Carla Us MD MTDD
[2019-06-29] MEDS: LOVENOX SUBQ SCH (20:49)
[2019-06-30] MEDS: TYLENOL PO PRN ×2 (03:05→14:30)
[2019-06-30 06:59] LABS: BASO# 0.02 X1000 (0.0-0.2); BASO% 0.2 % (0.0-0.8); EOS# 0.01 X1000 (0.0-0.7); EOS% 0.1 % (0.0-10.0); HEMATOCRIT 31.3 % (37.0-47.0); IMM GRAN# 0.02 X1000 (0.0-0.04); IMM GRAN% 0.2 % (0.0-0.5); LYMPH# 1.11 X1000 (1.2-3.4); LYMPH% 13.3 % (20.5-51.1); MCH 27.3 PG (27-31); MCHC 31.9 g/dL (33-37); MCV 85.5 FL (81-99); MONO# 0.76 X1000 (0.11-0.59); MONO% 9.1 % (1.7-9.3); MPV 10.3 FL (7.4-10.4); NEUT# 6.41 X1000 (1.4-6.5); NEUT% 77.1 % (42.2-75.2); PLT 206 X1000 (130-400); RBC 3.66 XMIL (4.2-5.4); WBC 8.33 X1000 (4.8-10.8)
[2019-06-30 07:28] LABS: AGAP 11; ALB/GLOB RATIO 0.9; ALBUMIN 3.3 g/dL (3.5-5.0); ALKALINE PHOSPHATASE 90 U/L (32-104); BUN 9 mg/dL (8-22); CALCIUM 8.5 mg/dL (8.8-10.2); CHLORIDE 102 mmol/L (98-107); COSMO 274; CREATININE 0.6 mg/dL (0.5-0.9); ESTIMATED GFR > 60; GLUCOSE 117 mg/dL (70-104); GOT 27 U/L (10-30); GPT 11 U/L (10-36); MAGNESIUM 2.1 mg/dL (1.5-2.7); POTASSIUM 3.9 mmol/L (3.5-5.1); SODIUM 137 mmol/L (136-145); TCO2 24 mmol/L (25-35); TOTAL BILIRUBIN 0.43 mg/dL (0.20-1.00)
[2019-06-30] MEDS: SYNTHROID PO SCH ×2 (07:58→10:49)
[2019-06-30] MEDS ORDERED: SODIUM PHOSPHATE 30 MMOL in NS 250 ML IV ONE (12:07)
[2019-06-30] MEDS ORDERED: SORBITOL PO ONE (12:10)
[2019-06-30] MEDS ORDERED: PERCOCET-5 PO PRN (12:11)
--- NOTE | 2019-06-30 14:10 | ORTHOPAEDICS PROGRESS NOTE ---
DATE: 06/30/2019 SUBJECTIVE: Ms. Gomez is an 84-year-old female who is hospitalized for pubic rami fractures. She has been evaluated by Dr. Chavez. She has no complaints at this time other than some pain to her pelvis. OBJECTIVE: Ms. Gomez is resting in bed comfortably at this time. No acute distress. She has active dorsiflexion and plantar flexion of her right foot without difficulty. Her calf is soft. Her sensation is intact distally. She does have some pain with gentle palpation over her right pelvis. ASSESSMENT: Superior and inferior right pubic rami fractures. PLAN: She has been weightbearing with a walker with physical therapy. She is awaiting rehab placement at this time. She is able to be discharged once a rehab bed is available. She has opted to follow up with one of the physicians in [place], as this is where she lives. We discussed that she would follow up once she is discharged from the rehab facility. She will be placed on deep venous thrombosis prophylaxis per the medical team and it looks like she has been placed on Lovenox at this time. Dictated by STONEY Hansen for Mahesh Pearce MD cc: Mahesh Pearce MD MTDD
--- NOTE | 2019-06-30 18:05 | DISCHARGE SUMMARY ---
ADMISSION DATE: 06/28/2019 DISCHARGE DATE: 06/30/2019 FINAL DISCHARGE DIAGNOSES: 1. Right pubic rami fractures. 2. Hypothyroidism. 3. Hypertension. 4. Constipation. 5. Hyperlipidemia. CONSULTATIONS: Orthopedic consultation with Dr. Chavez. IMAGIN. X-ray of the hip and pelvis performed on 06/28/2019 which revealed right pubic rami fractures. 2. Chest x-ray performed on 06/28/2019 which revealed no acute disease. HOSPITAL COURSE: Ms. Gomez is an 84-year-old female with a history of hypertension and dyslipidemia who presented to the ER after she slipped and fell and landed on her right hip. Upon arrival to the ER an x-ray of the hip and pelvis was done that revealed right pubic rami fractures. The patient was admitted to the hospitalist service and orthopedic surgery was consulted. After assessment, it was determined by the orthopedic surgeon that the patient would need inpatient rehab placement. He explained that the patient would need at least six weeks of recovery to get back to her normal activity level. [employer] Loader was consulted and referrals were sent out to the rehab of choice that the patient requested. The patient was notified that she would be accepted for inpatient rehab at [facility] on 07/01/2019. The patient was started on laxative therapy and was able to have a bowel movement. At this time, the patient is medically stable for discharge to inpatient rehab. DISCHARGE MEDICATIONS: 1. MiraLAX 17 grams oral twice a day. 2. Percocet 5/325 one tab oral every six hours p.r.n. for pain. 3. Lactulose 30 mL oral twice a day and p.r.n. for constipation. 4. Pravachol 40 mg oral at bedtime. 5. Synthroid 75 mcg oral daily. 6. Norvasc 2.5 mg oral every morning. DISCHARGE DIET: Heart healthy diet. ACTIVITY: As tolerated. FOLLOWUP INSTRUCTIONS: The patient will need to follow up with Dr. Pearce once she is discharged from rehab. cc: MD Sarah Kulkarni MD
--- NOTE | 2019-06-30 18:07 | PROGRESS NOTE ---
DATE: 06/30/2019 SUBJECTIVE: The patient is resting comfortably in bed. No acute events noted overnight. OBJECTIVE: Vital Signs: Temperature 98.9 degrees, blood pressure 134/55, heart rate 90, respirations 22, O2 saturation 97% on room air. General: This is a chronically ill-appearing elderly female lying in bed in no acute distress. Heart: S1, S2 normal. Regular rate and rhythm. Lungs: Equal air entry bilaterally. No wheezing. No rales. Abdomen: Positive bowel sounds, soft, nontender, nondistended. Extremities: No edema, no cyanosis. Neurologic: The patient is alert and oriented x3. LABORATORIES: White blood cell count 8.3, hemoglobin 10, hematocrit 31, platelets 206,000. Sodium 137, potassium 3.9, chloride 102, CO2 24, BUN 9, creatinine 0.6. Glucose 117, calcium 8.5, phosphorus 2.5, magnesium 2.1. AST 27, ALT 11, alkaline phosphatase 90. ASSESSMENT AND PLAN: 1. Right pubic rami fractures. Conservative management was recommended by the orthopedic surgeon. The patient will continue with physical therapy and inpatient rehabilitation. The patient will need follow-up x-rays in 4 weeks. 2. Hypothyroidism. Continue on Synthroid. 3. Hypertension. Controlled. 4. Constipation. Continue with laxative therapy. 5. Deep vein thrombosis prophylaxis. Continue with Lovenox. 6. Disposition. The patient will be discharged to inpatient rehab on 07/01/2019. cc: Carla Us MD
[2019-06-30] MEDS: LOVENOX SUBQ SCH ×2 (22:07→22:11)
[2019-06-30] MEDS: MIRALAX PO SCH (22:08)
[2019-06-30] MEDS: LACTULOSE PO SCH (22:08)
[2019-07-01 06:28] LABS: AGAP 13; ALBUMIN 3.5 g/dL (3.5-5.0); BUN 10 mg/dL (8-22); CHLORIDE 100 mmol/L (98-107); COSMO 270; CREATININE 0.5 mg/dL (0.5-0.9); ESTIMATED GFR > 60; GLUCOSE 107 mg/dL (70-104); MAGNESIUM 2.2 mg/dL (1.5-2.7); PHOSPHORUS 2.5 mg/dL (2.7-4.5); POTASSIUM 3.6 mmol/L (3.5-5.1); SODIUM 135 mmol/L (136-145); TCO2 22 mmol/L (25-35)
[2019-07-01] MEDS: MIRALAX PO SCH (09:06)
[2019-07-01] MEDS: LACTULOSE PO SCH (09:06)
[2019-07-01] MEDS: SYNTHROID PO SCH (09:07)
[2019-07-01 11:24] VITALS: BP 145/64
--- NOTE | 2019-07-01 12:55 | PROGRESS NOTE ---
DATE: 07/01/2019 INTERVAL HISTORY: No acute events overnight. SUBJECTIVE: Ms. Gomez denies any chest pain, shortness of breath, nausea, vomiting, abdominal pain. She had her breakfast. We discussed about a pubic ramus fracture. We discussed about following up with repeat imaging in 3 to 4 weeks' time, seeing orthopedic doctor in his office. I answered all of her questions. OBJECTIVE: Vital Signs: Currently, temperature 98.5 degrees, pulse 94, respiratory rate 20, blood pressure 145/64. She is saturating 93% on room air. General: On physical examination, Ms. Gomez is not in acute distress. HEENT: Oral cavity is moist. Respiratory: Air entry bilaterally equal. No wheeze or crackles. Cardiac: S1 and S2 normal. No murmur or gallop. Abdomen: Soft, nontender. Extremities: No lower extremity edema. She is able to wiggle toes of bilateral lower extremities. She is able to raise left lower extremity above ground level. She is able to flex at the right hip and right knee joint. Intact dorsalis pedis and posterior tibial pulses. DIAGNOSTIC DATA: No new CBC today. BMP suggestive of BUN of 10, creatinine 0.5. Blood culture has not shown any growth to date. ASSESSMENT AND PLAN: 1. Right pubic ramus fracture after a fall. Continue physical therapy at rehabilitation. Follow up with her orthopedic physician for repeat imaging in about 4 weeks' time. Continue enoxaparin for deep vein thrombosis prophylaxis at the time of discharge. She should have outpatient followup with regular physician for osteoporosis workup. 2. Constipation, likely slow transient constipation, resolved. 3. Others, continue Synthroid for hypothyroidism and amlodipine for essential hypertension. 4. Plan to be discharged to rehab. cc: Parth Crabtree MD
== END 2019-07-01 14:14 | DRG 536 ==
LOC: ED 12:07 → EDIPHOLD 15:50 → SUATTDRO 15:50 → 4N 18:12
PROVIDERS: ATTEND Internal Medicine